=== PATIENT | male | born 1940 | race Caucasian/White ===

== ENCOUNTER 2018-06-13 07:43 | Emergency (ER) | payer MEDICARE ==
[~2018-06-13] VITALS: Ht 182.9 cm; Wt 103.2 kg
[~2018-06-13 07:43] MED LIST: CYCL-1 PO
[2018-06-13 08:14] VITALS: BP 156/88
[2018-06-13] MEDS ORDERED: ketorolac tromethamine 15mg/ml inj. IM ONE (08:45)
[2018-06-13] MEDS ORDERED: ketorolac trometh. 30mg/ml inj. IM ONE (08:45)
[2018-06-13] MEDS ORDERED: ondansetron 4mg rapidly disintigrating tab PO ONE (08:45)
[2018-06-13 09:02] LABS: CLARITY,URINE CLOUDY (Clear); COLOR,URINE YELLOW (Yellow); GLUCOSE, URINE NEGATIVE (Neg); KETONES,URINE NEGATIVE (Neg); LEUKOCYTE ESTERASE ,URINE NEGATIVE (Neg); NITRITES, URINE NEGATIVE (Neg); OCCULT BLOOD,URINE LARGE (Neg); PH,URINE 5.5 (4.8-8.0); PROTEIN,URINE TRACE mg/dl (Neg); UA COLLECTION TYPE CLN CATCH MIDSTREAM; UROBILINOGEN,URINE 0.2 E.U/dL (0.2-1.0)
[2018-06-13 09:09] LABS: MUCUS STRANDS MANY /LPF (Neg); SQUAMOUS EPITHELIAL CELL,UR MODERATE /LPF (FEW)
[2018-06-13 09:10] LABS: RBC,URINE 50-100 /HPF (0-2)
[2018-06-13 09:12] LABS: WBC CLUMPS,URINE FEW /HPF (NEGATIVE)
[2018-06-13 09:14] LABS: CAL OXALATE CRYSTALS 2+ /HPF (NEGATIVE)
[2018-06-13 09:16] LABS: BACTERIA,URINE FEW /HPF (Neg)
[2018-06-13] MEDS ORDERED: cephalexin 250mg capsule PO ONE (09:30)
[2018-06-13] MEDS ORDERED: FLO0.4C PO (10:12)
[2018-06-13] MEDS ORDERED: CEPH500C5 PO (10:12)
[2018-06-13] MEDS ORDERED: HYDR-3965 PO (10:18)
[2018-06-13] MEDS ORDERED: ONDA4TAB12 PO (10:18)
[2018-06-13] MEDS ORDERED: HYDROcodone/acetaminophen 5mg/325mg tablet PO ONE (10:20)
== END 2018-06-13 10:35 | disposition home or self-care (01) ==
LOC: ER 07:44
DX: N39.0 Urinary tract infection, site not specified (principal); N40.0 Benign prostatic hyperplasia without lower urinary tract symptoms; F12.90 Cannabis use, unspecified, uncomplicated; Z79.2 Long term (current) use of antibiotics; Z79.899 Other long term (current) drug therapy
CPT/HCPCS: 74176; 81001; 87088; 96372; 99284; J1885

== ENCOUNTER 2018-12-25 09:41 | Day surgery (SDC) | payer MEDICARE ==
[2018-12-24 17:12] LABS: PARTIAL THROMBOPLASTIN TIME 27 SECONDS (22-32)
[2018-12-24 17:13] LABS: ALBUMIN 3.5 G/DL (3.4-5.0); ANION GAP 5 (8-16); BLOOD UREA NITROGEN 21 MG/DL (7-18); BUN/CREATININE RATIO 22.3 (5.4-32.0); CALCIUM 9.5 MG/DL (8.5-10.1); CHLORIDE 107 MMOL/L (99-107); CREATININE 0.94 MG/DL (0.60-1.10); GLUCOSE 91 MG/DL (70-104); POTASSIUM 4.1 MMOL/L (3.5-5.1); SODIUM 144 MMOL/L (135-145); TOTAL CARBON DIOXIDE 32.4 MMOL/L (24-32); eGFR 78 ML/MIN
[~2018-12-25] VITALS: Ht 182.9 cm; Wt 107.5 kg
[2018-12-25] VITALS (9 sets, daily range): BP systolic 122–147; BP diastolic 54–86
[~2018-12-25 09:41] MED LIST changes: +CEPH500C5 PO; +ONDA4TAB12 PO
[2018-12-25] MEDS ORDERED: normal saline 1000ml 1,000 ML IV SCH (10:15)
[2018-12-25] MEDS ORDERED: diphenhydrAMINE 25mg capsule PO ONE (10:20)
[2018-12-25] MEDS ORDERED: LORazepam 0.5 MG tablet PO ONE (10:20)
[2018-12-25 10:21] LABS: BASOPHILS # (AUTO) 0.1 X10'3 (0-0.2); BASOPHILS % (AUTO) 0.8 % (0-1); EOSINOPHILS # (AUTO) 0.2 X10'3 (0-0.9); EOSINOPHILS % (AUTO) 2.4 % (0-6); HEMOGLOBIN 13.7 g/dl (14.0-17.9); LYMPHOCYTES # (AUTO) 1.4 X10'3 (1.1-4.8); MEAN CORPUSCULAR HEMOGLOBIN 31.7 PG (27.0-31.0); MEAN CORPUSCULAR HGB CONC 33.5 g/dL (33.0-36.5); MEAN CORPUSCULAR VOLUME 94.5 FL (78-98); MEAN PLATELET VOLUME 8.3 FL (7.4-10.4); MONOCYTES # (AUTO) 0.5 X10'3 (0-0.9); NEUTROPHILS # (AUTO) 4.6 X10'3 (1.8-7.7); NEUTROPHILS % (AUTO) 67.8 % (42-75); PLATELET COUNT 162 X10'3 (140-440); RED BLOOD COUNT 4.34 X10'6 (4.70-6.10); RED CELL DISTRIBUTION WIDTH 12.8 % (11.5-14.5); WHITE BLOOD COUNT 6.8 X10'3 (4.5-11.0)
[2018-12-25] MEDS ORDERED: LIDOcaine/PRILOcaine 5gm cream TP ONE (10:25)
[2018-12-25] MEDS ORDERED: ISOS30TA6 PO (10:36)
[2018-12-25] MEDS ORDERED: METO25TA6 PO (10:36)
[2018-12-25] MEDS ORDERED: PRAV40TA3 PO (10:36)
[2018-12-25] MEDS ORDERED: FLO0.4C PO (10:36)
[2018-12-25] MEDS ORDERED: FINA5TAB11 PO (10:36)
[2018-12-25] MEDS ORDERED: CHOL10002 PO (10:36)
[2018-12-25] MEDS ORDERED: LIDOcaine 1% (10mg/ml)w/preservative injection 20ml MDV ONE (11:23)
[2018-12-25] MEDS ORDERED: fentaNYL/PF 50MCG/1 ML 2ML syringe ONE (11:23)
[2018-12-25] MEDS ORDERED: heparin 1,000unit/ml 10ml vial 10 ML ONE (11:23)
[2018-12-25] MEDS ORDERED: midazolam 2 mg/2 ml injection ONE (11:23)
[2018-12-25] MEDS ORDERED: heparin 1,000 UNITS/NS 500ml 500 ML ONE (11:24)
[2018-12-25] MEDS ORDERED: iohexol 350MG/ML 100ml bottle IV ONE (11:24)
[2018-12-25] MEDS ORDERED: nitroGLYCERIN-Tridil 50MG/D5W 250 ML IV ONE (11:24)
[2018-12-25] MEDS ORDERED: iohexol 350 MG/ML 50ML vial IV ONE ×2 (11:24→12:38)
[2018-12-25] MEDS ORDERED: verapamil 2.5 mg/ml inj IV ONE (11:24)
[2018-12-25 16:01] LABS: ISTAT HGB ART 12.6 g/dl (14.0-18.0); ISTAT Hct ART 37 %PCV (42-52); ISTAT O2 SATURATION ARTERIAL 92 % (95-98); ISTAT SOURCE ART
[2018-12-25 16:01] LABS: ISTAT Hct MIX 37 %PCV (42-52); ISTAT O2 SATURATION MIX VENOUS 56 % (60-80); ISTAT SOURCE MIX
== END 2018-12-25 18:15 | disposition home or self-care (01) ==
LOC: SSTAY O 09:41
PROVIDERS: ATTEND Internal Medicine Cardiovascular Disease
DX: R94.39 Abnormal result of other cardiovascular function study (principal); I25.119 Atherosclerotic heart disease of native coronary artery with unspecified angina pectoris; I25.82 Chronic total occlusion of coronary artery; E78.5 Hyperlipidemia, unspecified; J44.9 Chronic obstructive pulmonary disease, unspecified; N40.0 Benign prostatic hyperplasia without lower urinary tract symptoms; Z79.01 Long term (current) use of anticoagulants; Z79.899 Other long term (current) drug therapy; F17.210 Nicotine dependence, cigarettes, uncomplicated; F12.90 Cannabis use, unspecified, uncomplicated; Z72.89 Other problems related to lifestyle; Z80.9 Family history of malignant neoplasm, unspecified; Z82.49 Family history of ischemic heart disease and other diseases of the circulatory system
CPT/HCPCS: 36415; 71046; 80048; 82803; 85014; 85025; 85610; 85730; 93005; 93460; 93567; 93880; 93970; 99152; 99153; C1769; C1894; J1644; J2001; J2250; J3010; J7030; Q0163; Q9967; A4620; A5120; J3490

== ENCOUNTER 2018-12-30 05:18 | Inpatient (IN) | payer MEDICARE ==
[2018-12-27 13:45] LABS: CLARITY,URINE CLEAR (Clear); COLOR,URINE YELLOW (Yellow); GLUCOSE, URINE NEGATIVE (Neg); KETONES,URINE NEGATIVE (Neg); LEUKOCYTE ESTERASE ,URINE NEGATIVE (Neg); NITRITES, URINE NEGATIVE (Neg); OCCULT BLOOD,URINE NEGATIVE (Neg); PROTEIN,URINE NEGATIVE (Neg); UROBILINOGEN,URINE 0.2 E.U/dL (0.2-1.0)
[2018-12-27 13:46] LABS: BASOPHILS # (AUTO) 0.1 X10'3 (0-0.2); BASOPHILS % (AUTO) 0.9 % (0-1); EOSINOPHILS # (AUTO) 0.1 X10'3 (0-0.9); EOSINOPHILS % (AUTO) 1.8 % (0-6); LYMPHOCYTES # (AUTO) 1.2 X10'3 (1.1-4.8); LYMPHOCYTES % (AUTO) 20.2 % (21-51); MEAN CORPUSCULAR HEMOGLOBIN 31.9 PG (27.0-31.0); MEAN CORPUSCULAR VOLUME 93.8 FL (78-98); MEAN PLATELET VOLUME 8.5 FL (7.4-10.4); MONOCYTES # (AUTO) 0.5 X10'3 (0-0.9); NEUTROPHILS # (AUTO) 4.1 X10'3 (1.8-7.7); NEUTROPHILS % (AUTO) 69.1 % (42-75); PRE OP HEMATOCRIT 41.8 % (42.0-52.0); PRE OP HEMOGLOBIN 14.2 g/dL (14.0-17.9); PRE OP PLATELET COUNT 172 X10'3 (140-440); RED BLOOD COUNT 4.46 X10'6 (4.70-6.10)
[2018-12-27 13:48] LABS: UA COLLECTION TYPE NON-SPECIFIED
[2018-12-27 13:50] LABS: HEMOGLOBIN A1C 5.5 % (4.5-6.2)
[2018-12-27 13:56] LABS: PRE OP INR 1.1 INR; PRE OP PROTIME 11.6 SECONDS (9.0-12.0)
[2018-12-27 14:08] LABS: ALBUMIN 3.7 G/DL (3.4-5.0); ALBUMIN/GLOBULIN RATIO 1.1 (1.1-1.5); ALKALINE PHOSPHATASE 95 IU/L (46-116); BLOOD UREA NITROGEN 17 MG/DL (7-18); BUN/CREATININE RATIO 17.2 (5.4-32.0); CHLORIDE 105 MMOL/L (99-107); CREATININE 0.99 MG/DL (0.60-1.10); PRE OP ALT 28 U/L (30-65); PRE OP ANION GAP 7 (8-16); PRE OP AST 15 U/L (10-37); PRE OP BILIRUB, TOTAL 0.4 MG/DL (0.0-1.0); PRE OP GLUCOSE 95 MG/DL (70-104); PRE OP POTASSIUM 4.6 MMOL/L (3.4-5.1); PRE OP SODIUM 142 MMOL/L (135-145); TOTAL CARBON DIOXIDE 30.2 MMOL/L (24-32); eGFR 73 ML/MIN
[~2018-12-30] VITALS: Ht 365.8 cm; Wt 107.1 kg
[2018-12-30] VITALS (16 sets, daily range): BP systolic 119–152; BP diastolic 45–75
[~2018-12-30 05:18] MED LIST changes: -CEPH500C5 PO; +CHOL10002 PO; -CYCL-1 PO; +FINA5TAB11 PO; +FLO0.4C PO; +ISOS30TA6 PO; +METO25TA6 PO; -ONDA4TAB12 PO; +PRAV40TA3 PO; +ROPIVAcaine 0.5% (5mg/ml) 30ml vial ONE; +ringers solution, lacted 1,000 ML IV SCH
[2018-12-30] MEDS ORDERED: metoprolol tartrate 12.5mg (1/2 tablet) PO ONE (05:30)
[2018-12-30] MEDS ORDERED: albuterol 2.5 MG/3 ML nebule NEB ONE (05:30)
[2018-12-30] MEDS ORDERED: LORazepam 2 mg/ml vial IV ONE (05:30)
[2018-12-30] MEDS ORDERED: gabapentin 300mg capsule PO ONE (05:30)
[2018-12-30] MEDS ORDERED: VANCOMYCIN INJ 1000 MG in NORMAL SALINE 250ml IV.SOLN IV ONE (05:30)
[2018-12-30] MEDS ORDERED: mupirocin 2% nasal ointment 1gm UD NS ONE (05:30)
[2018-12-30] MEDS ORDERED: famotidine 20mg tablet PO ONE (05:30)
[2018-12-30] MEDS ORDERED: insulin regular, human 100 UNIT in normal saline 100ml IV soln 99 ML IV ONE ×2 (05:30)
[2018-12-30] MEDS ORDERED: cefazolin/dext.iso 2gm/50ml 50 ML IV ONE (05:30)
[2018-12-30] MEDS ORDERED: LIDOcaine 1% (10mg/ml) 2ml vial ONE (05:31)
[2018-12-30] MEDS ORDERED: heparin 10,000 units/1 ML INJ IR ONE (06:30)
[2018-12-30] MEDS ORDERED: papaverine 30 mg/ml 2ml inj. IA ONE (06:30)
[2018-12-30] MEDS ORDERED: SUFENTANIL CITRATE 50 MCG/ML 2ml ampule IV ONE ×2 (06:52→10:50)
[2018-12-30] MEDS ORDERED: midazolam 2 mg/2 ml injection ONE (06:52)
[2018-12-30] MEDS ORDERED: acetaminophen 1000 MG/100ml vial IV ONE (06:58)
[2018-12-30] MEDS ORDERED: nitroGLYCERIN in D5W 50mg/250ml (Tridil) infusion IV ONE (06:58)
[2018-12-30] MEDS ORDERED: isoflurane 100ml inhalation liquid IH ONE (06:58)
[2018-12-30] MEDS ORDERED: protamine sulf. 10mg/ml inj. IV ONE (06:58)
[2018-12-30] MEDS ORDERED: DOPamine/D5W 400mg/250ml bag IV ONE (06:58)
[2018-12-30] MEDS ORDERED: niCARDipine in NS 40mg/200ml (0.2mg/ml) IVPB IV ONE (06:58)
[2018-12-30] MEDS ORDERED: BRIM5DRO EACHEYE (07:02)
[2018-12-30] MEDS ORDERED: LATA2.5D2 EACHEYE (07:03)
[2018-12-30] MEDS: NUT.TX.IMPAIRED DIGEST FXN (Ensure Clear) 237 ML PO SCH (07:10)
[2018-12-30 07:40] LABS: ABG BASE EXCESS -1.6 mmol/L (-2.0-3.0); ABG HCO3 22.3 mmol/L (22.0-26.0); ABG OXYGEN SATURATION 99.6 % (95-98); ABG PCO2 35.2 mmHg (35.0-45.0); ABG PO2 495.6 mmHg (60.0-100.0); CL (ABG) 105 mmol/L (99-107); FCOHb 1.4 % (0.5-1.5); FMetHb 0.4 % (0.3-1.12); FO2Hb 97.8 % (94-100); GLUCOSE (ABG) 83 mg/dl (70-104); IONIZED CA (ABG) 1.14 mmol/L (1.03-1.32); K (ABG) 4.1 mmol/L (3.3-5.1); NA (ABG) 137 mmol/L (135-145); TOTAL HEMOGLOBIN 12.9 G/dl (14.0-17.9)
[2018-12-30] MEDS ORDERED: LIDOcaine 2% (20 mg/ml) 5ml cardiac syringe ONE (08:00)
[2018-12-30] MEDS ORDERED: aminocaproic acid 250 MG/1 ML inj. ONE (08:00)
[2018-12-30] MEDS ORDERED: sodium bicarbonate (8.4%) 1 mEq/ml syringe ONE (08:00)
[2018-12-30] MEDS ORDERED: MAGNESIUM SULFATE 4 MEQ/ML (5gm/10ml) injection ONE (08:00)
[2018-12-30] MEDS ORDERED: calcium chloride 100 MG/1 ML inj IV ONE (08:00)
[2018-12-30] MEDS ORDERED: potassium Cl 2 mEq/ml inj IV ONE (08:00)
[2018-12-30] MEDS ORDERED: albumin (human) 25% 100 ML IV solution IV ONE (08:00)
[2018-12-30] MEDS ORDERED: NORepinephrine 1 mg/ml inj IV ONE (08:00)
[2018-12-30 08:30] LABS: ABG BASE EXCESS VENOUS 2.5 mmol/L; ABG HCO3 VENOUS 29.8 mmol/L; ABG PCO2 VENOUS 59.4 mmHg; ABG PO2 VENOUS 47.4 mmHg; CL (ABG) 105 mmol/L (99-107); FCOHb VENOUS 1.6 %; FHHb VENOUS 15.8 %; FMetHb VENOUS 0.3 %; FO2Hb VENOUS 82.3 %; GLUCOSE (ABG) 76 mg/dl (70-104); IONIZED CA (ABG) 1.14 mmol/L (1.03-1.32); K (ABG) 4.1 mmol/L (3.3-5.1); NA (ABG) 137 mmol/L (135-145)
[2018-12-30] MEDS ORDERED: ipratropium/albuterol 3ml nebule IH PRN (09:00)
[2018-12-30 09:10] LABS: ABG BASE EXCESS VENOUS 0.5 mmol/L; ABG HCO3 VENOUS 26.4 mmol/L; ABG PCO2 VENOUS 48.5 mmHg; CL (ABG) 104 mmol/L (99-107); FCOHb VENOUS 1.1 %; FHHb VENOUS 6.3 %; FMetHb VENOUS 0.3 %; FO2Hb VENOUS 92.3 %; GLUCOSE (ABG) 77 mg/dl (70-104); IONIZED CA (ABG) 1.07 mmol/L (1.03-1.32); K (ABG) 5.3 mmol/L (3.3-5.1); NA (ABG) 135 mmol/L (135-145); TOTAL HEMOGLOBIN 10.5 G/dl (14.0-17.9)
[2018-12-30 09:10] LABS: ABG BASE EXCESS 0.7 mmol/L (-2.0-3.0); ABG HCO3 25.9 mmol/L (22.0-26.0); ABG OXYGEN SATURATION 99.4 % (95-98); ABG PCO2 43.7 mmHg (35.0-45.0); CL (ABG) 105 mmol/L (99-107); FCOHb 0.9 % (0.5-1.5); FMetHb 0.4 % (0.3-1.12); FO2Hb 98.1 % (94-100); GLUCOSE (ABG) 83 mg/dl (70-104); IONIZED CA (ABG) 1.05 mmol/L (1.03-1.32); K (ABG) 5.2 mmol/L (3.3-5.1); NA (ABG) 136 mmol/L (135-145); TOTAL HEMOGLOBIN 10.5 G/dl (14.0-17.9)
[2018-12-30 09:26] LABS: ACT @ 1.70 U 346 SEC (193-297); ACT @ 2.84 U 516 SEC (260-420); BASELINE ACT 168 SEC (101-148)
[2018-12-30 09:46] LABS: ABG BASE EXCESS 2.2 mmol/L (-2.0-3.0); ABG HCO3 26.8 mmol/L (22.0-26.0); ABG OXYGEN SATURATION 99.3 % (95-98); ABG PCO2 41.9 mmHg (35.0-45.0); ABG PH 7.424 (7.350-7.450); ABG PO2 413.7 mmHg (60.0-100.0); CL (ABG) 106 mmol/L (99-107); FCOHb 0.5 % (0.5-1.5); FMetHb 0.3 % (0.3-1.12); FO2Hb 98.5 % (94-100); GLUCOSE (ABG) 104 mg/dl (70-104); IONIZED CA (ABG) 1.07 mmol/L (1.03-1.32); K (ABG) 5.3 mmol/L (3.3-5.1); NA (ABG) 136 mmol/L (135-145); TOTAL HEMOGLOBIN 10.9 G/dl (14.0-17.9)
[2018-12-30 09:46] LABS: ABG BASE EXCESS 0.3 mmol/L (-2.0-3.0); ABG HCO3 23.1 mmol/L (22.0-26.0); ABG OXYGEN SATURATION 98.1 % (95-98); ABG PCO2 (T) 32.4 mmHg (35.0-45.0); ABG PH (T) 7.471 (7.350-7.450); ABG PO2 (T) 116.9 mmHg (83-108); ALLEN'S TEST Positive; FMetHb 0.2 % (0.3-1.12); FO2Hb 95.9 % (94-100); TOTAL HEMOGLOBIN 14.8 G/dl (14.0-17.9)
[2018-12-30 10:01] LABS: ABG BASE EXCESS 4.2 mmol/L (-2.0-3.0); ABG HCO3 28.6 mmol/L (22.0-26.0); ABG OXYGEN SATURATION 99.2 % (95-98); ABG PCO2 41.9 mmHg (35.0-45.0); ABG PH 7.452 (7.350-7.450); ABG PO2 346.3 mmHg (60.0-100.0); CL (ABG) 106 mmol/L (99-107); FCOHb 0.5 % (0.5-1.5); FMetHb 0.3 % (0.3-1.12); FO2Hb 98.4 % (94-100); GLUCOSE (ABG) 104 mg/dl (70-104); IONIZED CA (ABG) 1.52 mmol/L (1.03-1.32); K (ABG) 5.2 mmol/L (3.3-5.1); NA (ABG) 135 mmol/L (135-145); TOTAL HEMOGLOBIN 10.3 G/dl (14.0-17.9)
[2018-12-30] MEDS ORDERED: LIDOcaine 2% (20mg/ml) 5ml vial ONE (10:49)
[2018-12-30] MEDS ORDERED: propofol inj 20 ML IV ONE (10:49)
[2018-12-30] MEDS ORDERED: etomidate 2mg/ml inj. ONE (10:49)
[2018-12-30] MEDS ORDERED: rocuronium 10mg/ml inj IV ONE (10:49)
[2018-12-30 10:50] LABS: ABG BASE EXCESS VENOUS 0.2 mmol/L; ABG HCO3 VENOUS 24.6 mmol/L; ABG PCO2 VENOUS 39.2 mmHg; ABG PO2 VENOUS 45.6 mmHg; CL (ABG) 105 mmol/L (99-107); FCOHb VENOUS 1.3 %; FMetHb VENOUS 0.5 %; FO2Hb VENOUS 82.2 %; GLUCOSE (ABG) 96 mg/dl (70-104); IONIZED CA (ABG) 1.21 mmol/L (1.03-1.32); K (ABG) 4.6 mmol/L (3.3-5.1); NA (ABG) 137 mmol/L (135-145); TOTAL HEMOGLOBIN 11.6 G/dl (14.0-17.9)
[2018-12-30] MEDS ORDERED: NITR0.4T51 PO (11:18)
[2018-12-30 11:21] LABS: ACTIVATED CLOTTING TIME 148 SEC (101-148)
[2018-12-30] MEDS ORDERED: DOPamine 400mg/D5W 250ml 250 ML IV PRN (11:28)
[2018-12-30] MEDS ORDERED: sodium chloride 0.45% 1,000 ML IV SCH (11:28)
[2018-12-30] MEDS ORDERED: nitroGLYCERIN-Tridil 50MG/D5W 250 ML IV PRN (11:28)
[2018-12-30] MEDS ORDERED: niCARDipine-NS 40mg/200ml IVPB 200 ML IV PRN (11:28)
[2018-12-30] MEDS ORDERED: metoclopramide 5 mg/ml inj IV PRN (11:30)
[2018-12-30] MEDS ORDERED: acetaminophen 325mg tablet PO PRN ×2 (11:30)
[2018-12-30] MEDS ORDERED: sodium phosphate inj. 15 MMOL in dextrose 5%-water 150 ML IV PRN (11:30)
[2018-12-30] MEDS ORDERED: HYDROcodone/acetaminophen 10/325mg tab PO PRN (11:30)
[2018-12-30] MEDS ORDERED: potassium Cl 20 mEq SR tablet PO PRN (11:30)
[2018-12-30] MEDS ORDERED: Neutra Phos packet PO PRN (11:30)
[2018-12-30] MEDS ORDERED: ondansetron/PF 4mg/2ml inj IV PRN (11:30)
[2018-12-30] MEDS: insulin regular, human inj. 100 UNITS in normal saline 100ml IV soln 100 ML IV SCH ×2 (11:30)
[2018-12-30] MEDS ORDERED: magnesium 4gm in 100ml NS 100 ML IV PRN (11:30)
[2018-12-30] MEDS ORDERED: pantoprazole 40 MG vial IV ONE (11:30)
[2018-12-30] MEDS ORDERED: sodium phosphate inj. 30 MMOL in dextrose 5%-water 250 ML IV PRN (11:30)
[2018-12-30] MEDS ORDERED: normal saline 250ml IV soln 250 ML IV PRN (11:30)
[2018-12-30] MEDS ORDERED: dextrose 50%-water 50ml dispensing syringe IV PRN (11:30)
[2018-12-30] MEDS ORDERED: magnesium hydroxide 30ml (MOM) UD suspension PO PRN (11:30)
--- NOTE | 2018-12-30 11:35 | NUR ---
Received to room , accompanied by MDs and surgical crew. Placed on ventilator, to mud analysis supervisor, arterial line and PA line pressure monitored. Chest tubes to suction at 20 cm. White cath to gravity drainage. Dressings are dry and intact. See assessment record. All vasoactive drugs are infusing via central line.
[2018-12-30] MEDS ORDERED: phenylephrine 10mg/ml inj. ONE (11:41)
[2018-12-30 11:51] LABS: ABG BASE EXCESS -1.6 mmol/L (-2.0-3.0); ABG HCO3 23.2 mmol/L (22.0-26.0); ABG OXYGEN SATURATION 98.9 % (95-98); ABG PCO2 (T) 39.9 mmHg (35.0-45.0); ABG PH (T) 7.383 (7.350-7.450); ABG PO2 (T) 210.6 mmHg (83-108); FCOHb 0.3 % (0.5-1.5); FMetHb 0.3 % (0.3-1.12); FO2Hb 98.3 % (94-100); PEEP 5 cm H2O; RESPIRATORY RATE 12 b/min; TIDAL VOLUME 600 mL; TOTAL HEMOGLOBIN 13.1 G/dl (14.0-17.9)
[2018-12-30 11:57] LABS: BASOPHILS % (AUTO) 0.4 % (0-1); EOSINOPHILS % (AUTO) 0.3 % (0-6); HEMATOCRIT 36.5 % (42.0-52.0); HEMOGLOBIN 12.4 g/dl (14.0-17.9); LYMPHOCYTES # (AUTO) 0.8 X10'3 (1.1-4.8); LYMPHOCYTES % (AUTO) 7.1 % (21-51); MEAN CORPUSCULAR HEMOGLOBIN 31.9 PG (27.0-31.0); MEAN CORPUSCULAR HGB CONC 33.9 g/dL (33.0-36.5); MEAN CORPUSCULAR VOLUME 93.9 FL (78-98); MONOCYTES # (AUTO) 0.3 X10'3 (0-0.9); NEUTROPHILS # (AUTO) 9.9 X10'3 (1.8-7.7); NEUTROPHILS % (AUTO) 89.2 % (42-75); PLATELET COUNT 114 X10'3 (140-440); RED BLOOD COUNT 3.89 X10'6 (4.70-6.10); RED CELL DISTRIBUTION WIDTH 12.9 % (11.5-14.5); WHITE BLOOD COUNT 11.1 X10'3 (4.5-11.0)
[2018-12-30 12:16] LABS: PARTIAL THROMBOPLASTIN TIME 30 SECONDS (22-32)
[2018-12-30 12:18] LABS: ALANINE AMINOTRANSFERASE 20 U/L (12-78); ALBUMIN 3.1 G/DL (3.4-5.0); ALBUMIN/GLOBULIN RATIO 1.5 (1.1-1.5); ALKALINE PHOSPHATASE 67 IU/L (46-116); ANION GAP 7 (8-16); ASPARTATE AMINO TRANSFERASE 25 U/L (10-37); BILIRUBIN,TOTAL 0.6 MG/DL (0.1-1.0); BLOOD UREA NITROGEN 15 MG/DL (7-18); BUN/CREATININE RATIO 17.2 (5.4-32.0); CALCIUM 8.4 MG/DL (8.5-10.1); CHLORIDE 109 MMOL/L (99-107); CREATININE 0.87 MG/DL (0.60-1.10); GLUCOSE 130 MG/DL (70-104); MAGNESIUM 2.1 MG/DL (1.5-2.4); POTASSIUM 4.2 MMOL/L (3.5-5.1); SODIUM 145 MMOL/L (135-145); TOTAL PROTEIN 5.2 G/DL (6.4-8.2); eGFR 85 ML/MIN
--- NOTE | 2018-12-30 12:29 | NUR ---
Pt s/p CABGx5 and will need ed once stable prior to d/c. Addendum: 12/30/18 at [address] Amended: Links added.
[2018-12-30] MEDS: magnesium 2GM in 50ml NS 50 ML IV PRN ×2 (12:40→22:46)
[2018-12-30] MEDS: albumin (Human) 5% 250ml 250 ML IV PRN ×2 (12:46→16:40)
[2018-12-30] MEDS: morphine 4 MG/ML inj SYRINge IV PRN ×6 (12:49→20:07)
[2018-12-30] MEDS: insulin Lispro (HumaLOG) vial - multi-dose SQ SCH ×2 (13:00→18:00)
[2018-12-30] MEDS ORDERED: heparin 10,000 units/1 ML INJ ONE (14:00)
[2018-12-30] MEDS ORDERED: papaverine 30 mg/ml 2ml inj. ONE (14:00)
[2018-12-30] MEDS: gabapentin 300mg capsule PO SCH ×2 (14:30→20:32)
[2018-12-30] MEDS: potassium Cl 20mEq/100mL bag 100 ML IV PRN ×2 (14:37→17:50)
[2018-12-30] MEDS: ceFAZolin 1GM/D5W- ADD-VANTAGE 50 ML IV SCH (16:15)
[2018-12-30 16:16] LABS: ABG BASE EXCESS -2.1 mmol/L (-2.0-3.0); ABG HCO3 23.5 mmol/L (22.0-26.0); ABG OXYGEN SATURATION 98.7 % (95-98); ABG PCO2 (T) 43.2 mmHg (35.0-45.0); ABG PH (T) 7.353 (7.350-7.450); ABG PO2 (T) 146.3 mmHg (83-108); FCOHb 0.3 % (0.5-1.5); FMetHb 0.4 % (0.3-1.12); PEEP 5 cm H2O; TOTAL HEMOGLOBIN 13.1 G/dl (14.0-17.9)
[2018-12-30 17:34] LABS: BASOPHILS % (AUTO) 0.2 % (0-1); EOSINOPHILS % (AUTO) 0 % (0-6); HEMATOCRIT 33.7 % (42.0-52.0); HEMOGLOBIN 11.6 g/dl (14.0-17.9); LYMPHOCYTES # (AUTO) 0.3 X10'3 (1.1-4.8); LYMPHOCYTES % (AUTO) 3.1 % (21-51); MEAN CORPUSCULAR HEMOGLOBIN 32.2 PG (27.0-31.0); MEAN CORPUSCULAR HGB CONC 34.4 g/dL (33.0-36.5); MEAN CORPUSCULAR VOLUME 93.6 FL (78-98); MEAN PLATELET VOLUME 8.4 FL (7.4-10.4); MONOCYTES # (AUTO) 0.3 X10'3 (0-0.9); MONOCYTES % (AUTO) 2.9 % (2-12); NEUTROPHILS # (AUTO) 9.8 X10'3 (1.8-7.7); NEUTROPHILS % (AUTO) 93.8 % (42-75); PLATELET COUNT 127 X10'3 (140-440); WHITE BLOOD COUNT 10.5 X10'3 (4.5-11.0)
[2018-12-30 17:41] LABS: ALBUMIN 3.2 G/DL (3.4-5.0); ANION GAP 8 (8-16); BLOOD UREA NITROGEN 16 MG/DL (7-18); CALCIUM 7.9 MG/DL (8.5-10.1); CHLORIDE 110 MMOL/L (99-107); CREATININE 1.07 MG/DL (0.60-1.10); GLUCOSE 141 MG/DL (70-104); MAGNESIUM 2.4 MG/DL (1.5-2.4); PHOSPHORUS 2.2 MG/DL (2.3-4.5); POTASSIUM 4.2 MMOL/L (3.5-5.1); SODIUM 145 MMOL/L (135-145); TOTAL CARBON DIOXIDE 26.6 MMOL/L (24-32); eGFR 67 ML/MIN
--- NOTE | 2018-12-30 18:18 | NUR ---
Problems reprioritized. Patient report given, questions answered & plan of care reviewed with VICK Wren.
--- NOTE | 2018-12-30 18:30 | NUR ---
Patient in room ICU 2041. I have received report from Grover HICKMAN and had the opportunity to ask questions and assume patient care. Patient resting in bed on 1.5LNC with spo2 at 98%, patient was in sinus rhythm then during report had bradycardia at 44bpm, SBP dropped to 80s, epicardial pacer turned on at 80bpm and Dopamine gtt turned on at 2mcg/kg/min, patient is currently V-paced at 80bpm. Patient is alert and orientated x3. All vasoactive medications infusing via central line. All monitoring alarms audible. See IV spreadsheet and interventions for further information. Will continue to monitor.
--- NOTE | 2018-12-30 20:10 | NUR ---
Pulled 2mg Morphine for pt pain level of 6/10, administered 2mg, prior to waste pt pain level was not decreasing, administered 2mg more. Total of 4mg of Morphine given IV push.
[2018-12-30] MEDS: vancomycin/NS 1 GM ADD-VANTAGE 250 ML IV SCH (20:16)
[2018-12-30] MEDS: mupirocin 2% nasal ointment 1gm UD NS SCH (20:23)
[2018-12-30] MEDS: brimonidine 0.2% 5 ML ophthalmic drops EACHEYE SCH (20:25)
[2018-12-30] MEDS: docusate sod 100mg capsule PO SCH (20:31)
[2018-12-30] MEDS: latanoprost 0.005% 2.5ml ophthalmic drops EACHEYE SCH (22:46)
[2018-12-31] VITALS (23 sets, daily range): BP systolic 105–165; BP diastolic 46–103
[2018-12-31] MEDS: morphine 4 MG/ML inj SYRINge IV PRN ×2 (00:25→03:10)
[2018-12-31] MEDS: ceFAZolin 1GM/D5W- ADD-VANTAGE 50 ML IV SCH ×4 (01:08→23:09)
[2018-12-31 03:19] LABS: BASOPHILS % (AUTO) 0 % (0-1); EOSINOPHILS % (AUTO) 0 % (0-6); HEMATOCRIT 33.6 % (42.0-52.0); HEMOGLOBIN 11.4 g/dl (14.0-17.9); LYMPHOCYTES # (AUTO) 0.5 X10'3 (1.1-4.8); LYMPHOCYTES % (AUTO) 4.1 % (21-51); MEAN CORPUSCULAR VOLUME 94.2 FL (78-98); MEAN PLATELET VOLUME 8.3 FL (7.4-10.4); MONOCYTES # (AUTO) 0.6 X10'3 (0-0.9); MONOCYTES % (AUTO) 4.8 % (2-12); NEUTROPHILS # (AUTO) 12.1 X10'3 (1.8-7.7); NEUTROPHILS % (AUTO) 91.1 % (42-75); PLATELET COUNT 115 X10'3 (140-440); RED BLOOD COUNT 3.57 X10'6 (4.70-6.10); WHITE BLOOD COUNT 13.3 X10'3 (4.5-11.0)
[2018-12-31 03:44] LABS: PARTIAL THROMBOPLASTIN TIME 30 SECONDS (22-32)
[2018-12-31 03:46] LABS: ALANINE AMINOTRANSFERASE 20 U/L (12-78); ALBUMIN 3.2 G/DL (3.4-5.0); ALBUMIN/GLOBULIN RATIO 1.4 (1.1-1.5); ALKALINE PHOSPHATASE 63 IU/L (46-116); ANION GAP 8 (8-16); ASPARTATE AMINO TRANSFERASE 41 U/L (10-37); BILIRUBIN,TOTAL 0.3 MG/DL (0.1-1.0); BLOOD UREA NITROGEN 19 MG/DL (7-18); BUN/CREATININE RATIO 22.6 (5.4-32.0); CALCIUM 7.8 MG/DL (8.5-10.1); CHLORIDE 109 MMOL/L (99-107); CREATININE 0.84 MG/DL (0.60-1.10); GLUCOSE 144 MG/DL (70-104); MAGNESIUM 2.5 MG/DL (1.5-2.4); PHOSPHORUS 3.3 MG/DL (2.3-4.5); POTASSIUM 4.6 MMOL/L (3.5-5.1); SODIUM 143 MMOL/L (135-145); TOTAL CARBON DIOXIDE 26.3 MMOL/L (24-32); TOTAL PROTEIN 5.5 G/DL (6.4-8.2); eGFR 89 ML/MIN
--- NOTE | 2018-12-31 04:15 | NUR ---
Pacemaker turned down to 70bpm, pacer was not sensing properly and patient has own sinus rhythm in upper 70s, pacemaker rate turned down to 60bpm, patient is still in sinus rhythm with own rate. Will continue to monitor.
--- NOTE | 2018-12-31 06:32 | NUR ---
Problems reprioritized. Patient report given, questions answered & plan of care reviewed with Betty HICKMAN.
[2018-12-31] MEDS: NUT.TX.IMPAIRED DIGEST FXN (Ensure Clear) 237 ML PO SCH (07:10)
[2018-12-31] MEDS: tamsulosin 0.4mg capsule PO SCH (07:45)
[2018-12-31] MEDS: brimonidine 0.2% 5 ML ophthalmic drops EACHEYE SCH ×2 (07:45→19:41)
[2018-12-31] MEDS: atorvastatin 10mg tablet PO SCH (07:46)
[2018-12-31] MEDS: gabapentin 300mg capsule PO SCH ×3 (07:46→20:21)
[2018-12-31] MEDS: metoprolol tartrate 12.5mg (1/2 tablet) PO SCH ×2 (07:46→19:41)
[2018-12-31] MEDS: docusate sod 100mg capsule PO SCH ×2 (07:47→19:41)
[2018-12-31] MEDS: finasteride 5mg tablet PO SCH (07:47)
[2018-12-31] MEDS: aspirin 81mg tab.chew PO SCH (08:00)
[2018-12-31] MEDS ORDERED: aspirin 325mg tablet, delayed-release (Ecotrin) PO SCH (08:00)
[2018-12-31] MEDS: insulin Lispro (HumaLOG) vial - multi-dose SQ SCH ×3 (09:00→18:00)
[2018-12-31] MEDS: HYDROcodone/acetaminophen 10/325mg tab PO PRN ×3 (09:05→18:31)
[2018-12-31] MEDS: vancomycin/NS 1 GM ADD-VANTAGE 250 ML IV SCH ×2 (09:06→19:41)
[2018-12-31] MEDS: mupirocin 2% nasal ointment 1gm UD NS SCH (10:30)
[2018-12-31] MEDS: insulin regular, human inj. 100 UNITS in normal saline 100ml IV soln 100 ML IV SCH ×2 (11:30)
--- NOTE | 2018-12-31 12:30 | NUR ---
Patient able to be titrated off Insulin gtt as well as Nitro, has normal sinus rhythm with pacer off. Maintains heart rate in 80's. BP's stable 120'-130's systolic. Tobias ulrich'd by shuttle final inspector Sherry.
--- NOTE | 2018-12-31 14:42 | NUR ---
Right radial art line dc'd without bleeding or hematoma. Dressing applied. Right leg jacey wrap removed, incision to right medial knee left open to air and healing well. Midline sternal incision dressing removed and left open to air.
[2018-12-31] MEDS ORDERED: dextrose 50%-water 50ml dispensing syringe IV PRN ×4 (18:00→21:20)
[2018-12-31] MEDS ORDERED: dextrose ORAL solution 15 GM/59 ML bottle PO PRN ×4 (18:00→21:20)
[2018-12-31] MEDS ORDERED: insulin Lispro (HumaLOG) vial - multi-dose SQ SCH ×2 (18:00→21:20)
[2018-12-31] MEDS ORDERED: MESSAGE TO PHARMACY PO ONE ×2 (18:00→21:20)
[2018-12-31] MEDS ORDERED: glucagon, human recombinant 1mg kit SUBCUT PRN ×2 (18:00→21:20)
[2018-12-31] MEDS: lactobacillus rhamnosus 10,000 MMU CELLS/CAPSULE PO SCH (19:41)
[2018-12-31] MEDS: mupirocin 2% ointment 22GM NS SCH (20:21)
[2018-12-31] MEDS: latanoprost 0.005% 2.5ml ophthalmic drops EACHEYE SCH (20:21)
[2019-01-01] VITALS (15 sets, daily range): BP systolic 107–142; BP diastolic 52–73
[2019-01-01] MEDS: HYDROcodone/acetaminophen 10/325mg tab PO PRN ×3 (01:32→19:24)
[2019-01-01 02:50] LABS: BASOPHILS % (AUTO) 0.1 % (0-1); EOSINOPHILS % (AUTO) 0 % (0-6); HEMATOCRIT 37.4 % (42.0-52.0); HEMOGLOBIN 12.4 g/dl (14.0-17.9); LYMPHOCYTES # (AUTO) 0.9 X10'3 (1.1-4.8); LYMPHOCYTES % (AUTO) 4.5 % (21-51); MEAN CORPUSCULAR HEMOGLOBIN 31.4 PG (27.0-31.0); MEAN CORPUSCULAR HGB CONC 33.1 g/dL (33.0-36.5); MEAN CORPUSCULAR VOLUME 94.9 FL (78-98); MEAN PLATELET VOLUME 8.9 FL (7.4-10.4); MONOCYTES # (AUTO) 1.1 X10'3 (0-0.9); MONOCYTES % (AUTO) 5.4 % (2-12); PLATELET COUNT 139 X10'3 (140-440); RED BLOOD COUNT 3.94 X10'6 (4.70-6.10); RED CELL DISTRIBUTION WIDTH 13.2 % (11.5-14.5); WHITE BLOOD COUNT 21.2 X10'3 (4.5-11.0)
[2019-01-01 03:02] LABS: ALBUMIN 3.4 G/DL (3.4-5.0); ANION GAP 7 (8-16); BLOOD UREA NITROGEN 21 MG/DL (7-18); BUN/CREATININE RATIO 21.2 (5.4-32.0); CALCIUM 8.5 MG/DL (8.5-10.1); CHLORIDE 106 MMOL/L (99-107); CREATININE 0.99 MG/DL (0.60-1.10); GLUCOSE 146 MG/DL (70-104); MAGNESIUM 2.2 MG/DL (1.5-2.4); PHOSPHORUS 3.3 MG/DL (2.3-4.5); POTASSIUM 4.6 MMOL/L (3.5-5.1); SODIUM 142 MMOL/L (135-145); eGFR 73 ML/MIN
[2019-01-01] MEDS: magnesium 2GM in 50ml NS 50 ML IV PRN (03:11)
--- NOTE | 2019-01-01 06:41 | NUR ---
Patient in room ICU 2041. I have received report from VICK Lobato and had the opportunity to ask questions and assume patient care.
[2019-01-01] MEDS: NUT.TX.IMPAIRED DIGEST FXN (Ensure Clear) 237 ML PO SCH (07:10)
[2019-01-01] MEDS: pantoprazole 40mg Tablet.DR PO SCH (07:14)
[2019-01-01] MEDS: lactobacillus rhamnosus 10,000 MMU CELLS/CAPSULE PO SCH ×2 (07:14→19:23)
[2019-01-01] MEDS: gabapentin 300mg capsule PO SCH (07:14)
[2019-01-01] MEDS: aspirin 81mg tab.chew PO SCH (07:16)
[2019-01-01] MEDS: tamsulosin 0.4mg capsule PO SCH (07:17)
[2019-01-01] MEDS: atorvastatin 10mg tablet PO SCH (07:17)
[2019-01-01] MEDS: finasteride 5mg tablet PO SCH (07:17)
[2019-01-01] MEDS: docusate sod 100mg capsule PO SCH ×2 (07:17→19:23)
[2019-01-01] MEDS: metoprolol tartrate 12.5mg (1/2 tablet) PO SCH ×2 (07:18→19:23)
[2019-01-01] MEDS: brimonidine 0.2% 5 ML ophthalmic drops EACHEYE SCH ×2 (07:20→19:32)
[2019-01-01] MEDS: mupirocin 2% ointment 22GM NS SCH ×2 (07:20→19:32)
[2019-01-01] MEDS ORDERED: potassium Cl 20mEq/100mL bag 100 ML IV PRN (08:00)
[2019-01-01] MEDS ORDERED: potassium Cl 20 mEq SR tablet PO PRN (08:00)
[2019-01-01] MEDS: potassium Cl 20 mEq SR tablet PO SCH ×2 (08:00→19:16)
[2019-01-01] MEDS: magnesium Cl slow-release 64mg tablet PO SCH ×2 (08:00→19:16)
[2019-01-01] MEDS ORDERED: magnesium 2GM in 50ml NS 50 ML IV PRN (08:00)
[2019-01-01] MEDS ORDERED: magnesium 4gm in 100ml NS 100 ML IV PRN (08:00)
--- NOTE | 2019-01-01 10:48 | NUR ---
Patient in room ICU 2041. I have received report from ICU nurse, VICK Garcia and had the opportunity to ask questions and assume patient care.
--- NOTE | 2019-01-01 11:00 | NUR ---
Gave report to VICK Bo. Pt transferred to [facility] via ACCE monitor and wheelchair. Stable for transfer. All belongings with pt.
--- NOTE | 2019-01-01 18:21 | NUR ---
Problems reprioritized. Patient report given, questions answered & plan of care reviewed with VICK Damon.
--- NOTE | 2019-01-01 18:29 | NUR ---
Patient in room MED 316. I have received report from Betzy HICKMAN and had the opportunity to ask questions and assume patient care. bedside report completed. fall precaution initiated and education provided.
--- NOTE | 2019-01-01 18:30 | NUR ---
I have reviewed and agree with all interventions, assessments performed and documented by VICK Bo.
[2019-01-01] MEDS ORDERED: insulin glargine (Lantus) pen - multi-dose SQ SCH (21:00)
[2019-01-01] MEDS: latanoprost 0.005% 2.5ml ophthalmic drops EACHEYE SCH (21:35)
[2019-01-02 03:01] VITALS: BP 136/63
[2019-01-02] MEDS: HYDROcodone/acetaminophen 10/325mg tab PO PRN ×3 (03:59→20:52)
[2019-01-02 04:39] LABS: BASOPHILS # (AUTO) 0.1 X10'3 (0-0.2); BASOPHILS % (AUTO) 0.8 % (0-1); EOSINOPHILS # (AUTO) 0.1 X10'3 (0-0.9); EOSINOPHILS % (AUTO) 0.9 % (0-6); HEMATOCRIT 34.6 % (42.0-52.0); HEMOGLOBIN 11.7 g/dl (14.0-17.9); LYMPHOCYTES # (AUTO) 1.6 X10'3 (1.1-4.8); LYMPHOCYTES % (AUTO) 13.3 % (21-51); MEAN CORPUSCULAR HEMOGLOBIN 31.7 PG (27.0-31.0); MEAN CORPUSCULAR HGB CONC 33.8 g/dL (33.0-36.5); MEAN CORPUSCULAR VOLUME 93.7 FL (78-98); MEAN PLATELET VOLUME 8.3 FL (7.4-10.4); MONOCYTES % (AUTO) 8.3 % (2-12); NEUTROPHILS # (AUTO) 9.5 X10'3 (1.8-7.7); NEUTROPHILS % (AUTO) 76.7 % (42-75); PLATELET COUNT 129 X10'3 (140-440); RED BLOOD COUNT 3.69 X10'6 (4.70-6.10); RED CELL DISTRIBUTION WIDTH 13.1 % (11.5-14.5); WHITE BLOOD COUNT 12.4 X10'3 (4.5-11.0)
[2019-01-02 04:46] LABS: ALBUMIN 3.1 G/DL (3.4-5.0); ANION GAP 4 (8-16); BLOOD UREA NITROGEN 21 MG/DL (7-18); BUN/CREATININE RATIO 23.3 (5.4-32.0); CALCIUM 8.3 MG/DL (8.5-10.1); CHLORIDE 105 MMOL/L (99-107); GLUCOSE 99 MG/DL (70-104); MAGNESIUM 1.8 MG/DL (1.5-2.4); POTASSIUM 3.9 MMOL/L (3.5-5.1); SODIUM 140 MMOL/L (135-145); TOTAL CARBON DIOXIDE 30.8 MMOL/L (24-32); eGFR 82 ML/MIN
[2019-01-02 06:00] VITALS: BP 134/61
--- NOTE | 2019-01-02 06:30 | NUR ---
Problems reprioritized. Patient report given, Elaine HICKMAN questions answered & plan of care reviewed with .
[2019-01-02] MEDS: NUT.TX.IMPAIRED DIGEST FXN (Ensure Clear) 237 ML PO SCH (07:10)
[2019-01-02] MEDS: aspirin 81mg tab.chew PO SCH (07:52)
[2019-01-02] MEDS: brimonidine 0.2% 5 ML ophthalmic drops EACHEYE SCH ×2 (07:52→20:49)
[2019-01-02] MEDS: pantoprazole 40mg Tablet.DR PO SCH (07:52)
[2019-01-02] MEDS: lactobacillus rhamnosus 10,000 MMU CELLS/CAPSULE PO SCH ×2 (07:52→20:50)
[2019-01-02] MEDS: docusate sod 100mg capsule PO SCH ×2 (07:52→20:50)
[2019-01-02] MEDS: metoprolol tartrate 12.5mg (1/2 tablet) PO SCH ×2 (07:53→20:51)
[2019-01-02] MEDS: magnesium Cl slow-release 64mg tablet PO SCH ×2 (07:54→20:51)
[2019-01-02] MEDS: potassium Cl 20 mEq SR tablet PO SCH ×2 (07:54→20:50)
[2019-01-02] MEDS ORDERED: bisacodyl 10mg suppository rectal RC STA ×2 (08:24→08:36)
[2019-01-02] MEDS: finasteride 5mg tablet PO SCH (09:46)
--- NOTE | 2019-01-02 10:05 | NUR ---
Upon entering patient's room, patient disconnected from radiation monitor. Per patient, "Did you even notice that I was unhooked from this?" RN replied, "Yes; that is why I am in here checking on you." Educated patient on necessity of using call light to allow hospital staff to initiate portable telemetry monitoring when patient wants to ambulate or use the restroom. Patient verbalized understanding, and continued to be noncompliant with this request.
--- NOTE | 2019-01-02 12:56 | NUR ---
PATIENT DISCONNECTS HIMSELF AND TAKES HIMSELF TO THE BATHROOM WITHOUT CALLING OR WAITING FOR NURSING TO HOOK HIM UP TO POCKET MONITOR. REINFORCED EDUCATION THAT HE NEEDS TO BE CONTINUALLY MONITORED INCASE ANYTHING CHANGES WITH HIS HEART RHYTHM DURING ACTIVITY. PT STILL NONCOMPLIANT WITH THIS REQUEST.
[2019-01-02 15:00] VITALS: BP 145/70
[2019-01-02 18:00] VITALS: BP 133/62
--- NOTE | 2019-01-02 18:25 | NUR ---
Problems reprioritized. Patient report given, questions answered & plan of care reviewed with VICK Marcano.
[2019-01-02] MEDS ORDERED: metoprolol tartrate 12.5mg (1/2 tablet) PO SCH ×2 (20:00)
[2019-01-02] MEDS ORDERED: tamsulosin 0.4mg capsule PO SCH (20:00)
[2019-01-02] MEDS: latanoprost 0.005% 2.5ml ophthalmic drops EACHEYE SCH (20:49)
[2019-01-02 22:00] VITALS: BP 138/78
[2019-01-03 02:00] VITALS: BP 120/72
[2019-01-03] MEDS: HYDROcodone/acetaminophen 10/325mg tab PO PRN (02:27)
[2019-01-03 06:00] VITALS: BP 134/68
[2019-01-03 06:11] LABS: BASOPHILS % (AUTO) 0.4 % (0-1); EOSINOPHILS # (AUTO) 0.2 X10'3 (0-0.9); EOSINOPHILS % (AUTO) 2.1 % (0-6); HEMATOCRIT 37.8 % (42.0-52.0); HEMOGLOBIN 12.8 g/dl (14.0-17.9); LYMPHOCYTES # (AUTO) 2.3 X10'3 (1.1-4.8); LYMPHOCYTES % (AUTO) 21.4 % (21-51); MEAN CORPUSCULAR HEMOGLOBIN 31.9 PG (27.0-31.0); MEAN CORPUSCULAR HGB CONC 33.8 g/dL (33.0-36.5); MEAN CORPUSCULAR VOLUME 94.2 FL (78-98); MEAN PLATELET VOLUME 8.7 FL (7.4-10.4); MONOCYTES % (AUTO) 9.6 % (2-12); NEUTROPHILS # (AUTO) 7.1 X10'3 (1.8-7.7); NEUTROPHILS % (AUTO) 66.5 % (42-75); PLATELET COUNT 187 X10'3 (140-440); RED BLOOD COUNT 4.02 X10'6 (4.70-6.10); RED CELL DISTRIBUTION WIDTH 12.9 % (11.5-14.5); WHITE BLOOD COUNT 10.6 X10'3 (4.5-11.0)
[2019-01-03 06:18] LABS: ALBUMIN 3.4 G/DL (3.4-5.0); ANION GAP 8 (8-16); BLOOD UREA NITROGEN 20 MG/DL (7-18); BUN/CREATININE RATIO 21.3 (5.4-32.0); CALCIUM 8.5 MG/DL (8.5-10.1); CHLORIDE 104 MMOL/L (99-107); CREATININE 0.94 MG/DL (0.60-1.10); GLUCOSE 114 MG/DL (70-104); MAGNESIUM 2.1 MG/DL (1.5-2.4); POTASSIUM 4.4 MMOL/L (3.5-5.1); SODIUM 137 MMOL/L (135-145); TOTAL CARBON DIOXIDE 24.8 MMOL/L (24-32); eGFR 78 ML/MIN
--- NOTE | 2019-01-03 06:40 | NUR ---
Problems reprioritized. Patient report given, questions answered & plan of care reviewed with Tamiko HICKAMN.
[2019-01-03] MEDS ORDERED: ASPI-1265 PO (06:51)
[2019-01-03] MEDS ORDERED: HYDR-4353 PO (06:51)
[2019-01-03] MEDS: lactobacillus rhamnosus 10,000 MMU CELLS/CAPSULE PO SCH (07:34)
[2019-01-03] MEDS: magnesium Cl slow-release 64mg tablet PO SCH (07:35)
[2019-01-03] MEDS: potassium Cl 20 mEq SR tablet PO SCH (07:35)
[2019-01-03 07:36] VITALS: BP_SYST 134
[2019-01-03] MEDS: finasteride 5mg tablet PO SCH (07:36)
[2019-01-03] MEDS: aspirin 81mg tab.chew PO SCH (07:36)
[2019-01-03] MEDS: metoprolol tartrate 12.5mg (1/2 tablet) PO SCH (07:36)
[2019-01-03] MEDS: docusate sod 100mg capsule PO SCH (07:36)
[2019-01-03] MEDS: brimonidine 0.2% 5 ML ophthalmic drops EACHEYE SCH (07:37)
[2019-01-03] MEDS: pantoprazole 40mg Tablet.DR PO SCH (07:39)
--- NOTE | 2019-01-03 15:51 | NUR ---
Reviewed all discharge instructions,F/u appts,and medications with pt and marisol lombardi caregiver.home health will be be provided to [facility] in [place] on sunday,per caseworker intake.Post CABG care instructions provided, PT cleared for stairs SL dcd from left wrist,site clear,pt dc'd with family via wheelchair and all belongings
== END 2019-01-03 11:37 | disposition home health service (06) | DRG 236 ==
LOC: PAS IN 05:18 → EDSTATUS 07:30 → ICU 2S 11:08 → MED 3N 01-01 11:09
PROVIDERS: ADMIT Thoracic Surgery (Cardiothoracic Vascular Surgery); ATTEND Thoracic Surgery (Cardiothoracic Vascular Surgery)
PROC: 021309W Bypass Coronary Artery, Four or More Arteries from Aorta with Autologous Venous Tissue, Open Approach (ICD-10-PCS; 2018-12-30)
PROC: 06BP4ZZ Excision of Right Saphenous Vein, Percutaneous Endoscopic Approach (ICD-10-PCS; 2018-12-30)
PROC: 5A1221Z Performance of Cardiac Output, Continuous (ICD-10-PCS; 2018-12-30)
PROC: B24BZZ4 Ultrasonography of Heart with Aorta, Transesophageal (ICD-10-PCS; 2018-12-30)
PROC: 02HV33Z Insertion of Infusion Device into Superior Vena Cava, Percutaneous Approach (ICD-10-PCS; 2018-12-30)
PROC: 4A133B3 Monitoring of Arterial Pressure, Pulmonary, Percutaneous Approach (ICD-10-PCS; 2018-12-30)
PROC: 02HQ32Z Insertion of Monitoring Device into Right Pulmonary Artery, Percutaneous Approach (ICD-10-PCS; 2018-12-30)
PROC: 02100Z9 Bypass Coronary Artery, One Artery from Left Internal Mammary, Open Approach (ICD-10-PCS; principal; 2018-12-30 06:58)
DX: I25.110 Atherosclerotic heart disease of native coronary artery with unstable angina pectoris (principal); E78.5 Hyperlipidemia, unspecified; F12.90 Cannabis use, unspecified, uncomplicated; F17.210 Nicotine dependence, cigarettes, uncomplicated; I10 Essential (primary) hypertension; R73.02 Impaired glucose tolerance (oral); R00.1 Bradycardia, unspecified; H40.9 Unspecified glaucoma; J44.9 Chronic obstructive pulmonary disease, unspecified; N40.0 Benign prostatic hyperplasia without lower urinary tract symptoms; Z80.9 Family history of malignant neoplasm, unspecified; Z82.49 Family history of ischemic heart disease and other diseases of the circulatory system; Z79.899 Other long term (current) drug therapy; Z71.6 Tobacco abuse counseling
CPT/HCPCS: 0232T; 93312; 93325; 36415; 36600; 71045; 80048; 80053; 81003; 82330; 82435; 82803; 82947; 82948; 83036; 83735; 84100; 84132; 84295; 85018; 85025; 85347; 85384; 85610; 85730; 86885; 86900; 86901; 86920; 87081; 93005; 94002; 94640; 94667; 94668; 94760; 97116; 97161; 97530; A4618; A6258; A6402; A6449; A7000; A7048; C1713; C1751; C9113; G0378; J0131; J0690; J1265; J1644; J1815; J2001; J2060; J2150; J2250; J2270; J2370; J2440; J2704; J2720; J2795; J3370; J3475; J3480; J3490; J7030; J7040; J7050; J7060; J7120; P9045; P9047